=== PATIENT | female | born 1980 | race Caucasian/White ===

== ENCOUNTER 2023-10-24 13:40 | Emergency (ER) | payer OTHER, SELFPAY ==
[2023-10-24 13:45] VITALS: BP 116/78; PULSE 74; RESP 18; TEMP 35.8; O2SAT 100; BMI 29.5
--- NOTE | 2023-10-24 13:57 | ED.GENADULT ---
HPI - General Adult General Date Seen: 10/24/23 Chief complaint: Back Injury/Pain Stated complaint: lower back pain Time Seen by Provider: 10/24/23 13:57 History of Present Illness HPI narrative: This is a very pleasant 43-year-old female accompanied to the ER today by her daughter for evaluation of left flank and left low back pain. She has a history of occasional UTIs but is otherwise generally healthy. No history of kidney stones, diabetes, hypertension, or other long-term medical conditions. She has been very busy lately. She and her family are in the midst of selling her house and moving. Also her grandmother last night. She has not been no drinking as much fluids lately as she should be. She has been very active and moving . She noticed last night that she developed some urinary burning, indicative that she might be developing a UTI. She also does develop some dark colored urine but does not really know if it was bloody or just concentrated. No fevers. No nausea or vomiting. No diarrhea. No anterior abdominal pain Symptoms are ongoing today. Also this afternoon she developed rather severe pain involving her left low back, just above her left hip. It was stabbing in intense in nature in came and went in waves. When the pain was severe she was sweaty, nauseous, and in a lot of distress. Now that the pain is less severe she is no longer nauseous, no longer sweaty. No fevers this afternoon. No known back injury. The pain does not radiate down her legs. No chest pain or rib pain or trouble breathing. Related Data Home Medications Medication Instructions Recorded Confirmed dextroamphetamine-amphetamine 30 30 mg PO DAILY 10/24/23 10/24/23 mg tablet (Adderall) Previous Rx's Medication Instructions Recorded hydrocodone 5 mg-acetaminophen 325 1 tab PO Q6H PRN pain #10 tabs 10/24/23 mg tablet Allergies Allergy/AdvReac Type Severity Reaction Status Date / Time No Known Drug Allergies Allergy Verified 10/24/23 13:50 Exam Narrative: Exam Narrative: Constitutional: Appears well-developed and well-nourished. Alert. Conversant. Non toxic. Prefers to sit with her knees drawn up against her torso because it is a position of comfort for her. She is worried that she stretches or legs out her back might start to hurt again. HENT: Head: Atraumatic. Nose: Nose normal. Mouth/Throat: Oral mucosa is clear and moist. no trismus. Eyes: Conjunctivae normal. EOM normal. Pupils equal, round, and reactive to light. No scleral icterus. Neck: Normal range of motion. Neck supple. No tracheal deviation present. Cardiovascular: Normal rate, regular rhythm. No gallop. No friction rub. No murmur heard. Symmetric radial artery pulses Pulmonary/Chest: Effort normal. No stridor. No respiratory distress. No wheezes. No rales. No rhonchi . No tenderness. Abdominal: Soft. Bowel sounds normal. No distension. No mass. No tenderness. No rebound. No guarding. Left CVA tenderness. No rash. No bruising. Musculoskeletal: No midline thoracic or lumbar spine tenderness. SI joints and pelvis nontender. RUE: Normal range of motion. No tenderness. No deformity LUE: Normal range of motion. No tenderness. No deformity RLE: Normal range of motion. No edema. No tenderness. No deformity LLE: Normal range of motion. No edema. No tenderness. No deformity Lymph: No cervical adenopathy. Neurological: Alert and oriented to person, place, and time. Normal strength. CN II-VII intact. No sensory deficit. GCS eye subscore is 4. GCS verbal subscore is 5. GCS motor subscore is 6. Normal coordination Sensory: Normal light touch sensation bilaterally on the anteromedial thigh (L3), medial malleolus (L4), dorsal first web space (L5), lateral malleolus (S1). Strength: 5/5 strength hip flexors (L3) on the right and left 5/5 strength in the quadriceps (L4) on the right and left 5/5 strength in the tibialis anterior 5/5 strength in the EHL (L5) on the right and left 5/5 strength in the gastrocnemius (S1) on the right and left 5/5 strength in the hamstring on the right and left Negative straight leg raise bilaterally. Skin: Skin is warm and dry. No rash noted. No pallor. Normal capillary refill. Psychiatric: Normal mood. Normal affect. Polite. Const: Vital Signs, click to edit/add: Vital Signs - 24 hr 10/24/23 13:45 Temperature 96.4 F L Pulse Rate [Pulse Oximeter] 74 Respiratory Rate 18 Blood Pressure [Ri ght Upper Arm] 116/78 Pulse Oximetry 100 Oxygen Delivery Me thod Room Air Course Vital Signs Vital signs: Initial Vital Signs Temperature 96.4 F L 10/24/23 13:45 Temperature Source Temporal Artery Scan 10/24/23 13:45 Pulse Rate 74 10/24/23 13:45 Respiratory Rate 18 10/24/23 13:45 Blood Pressure 116/78 10/24/23 13:45 Blood Pressure Mean 90 10/24/23 13:45 Blood Pressure Position Supine 10/24/23 13:45 Pulse Oximetry 100 10/24/23 13:45 Oxygen Delivery Method Room Air 10/24/23 13:45 Vital Signs Temperature 96.4 F L 10/24/23 13:45 Pulse Rate 74 10/24/23 13:45 Respiratory Rate 18 10/24/23 13:45 Blood Pressure 116/78 10/24/23 13:45 Pulse Oximetry 100 10/24/23 13:45 Oxygen Delivery Method Room Air 10/24/23 13:45 Temperature 96.4 F L 10/24/23 13:45 Pulse Rate 74 10/24/23 13:45 Respiratory Rate 18 10/24/23 13:45 Blood Pressure 116/78 10/24/23 13:45 Pulse Oximetry 100 10/24/23 13:45 Oxygen Delivery Method Room Air 10/24/23 13:45 Medical Decision Making MDM Narrative Medical decision making narrative: Presented to the Emergency Department with urinary dysuria since last night as well as left flank pain that it began abruptly this afternoon abdominal pain. The differential diagnosis of abdominal pain includes: Left kidney stone, pyelonephritis, musculoskeletal low back pain. Without any anterior abdominal pain less likely would be diverticulitis, colitis, Pancreatitis, Enteritis/Colitis, amongst many other etiologies. Laboratory testing does not reveal a cause for the patient's pain. UA is negative for hematuria. Also negative for any pyuria or bacteria to suggest infection or pyelonephritis. Stone protocol CTImaging is noted to be normal. The exact etiology of the abdominal pain is not clear at this time. Your here however pain markedly improved while here in the ER. I wonder if she may have passed a small stone. No life threatening cause or need for emergent surgery or hospital admission is detected today. Differential would also include musculoskeletal back pain. She is not having any symptoms of lumbar radiculopathy or cauda quinine a or other indication for emergent MR imaging of her lumbar spine at this time. The patient was advised that if symptoms do not completely resolve within another 24 hours re-evaluation with primary care or return to the ED is indicated. The patient also understands that if they worsen, they should return to the ER right away. I discussed the uncertainty about the diagnosis and answered the patient's questions. return precautions discussed. Lab Data Labs: Lab Results 10/24/23 10/24/23 Range/Units 14:24 14:40 WBC 9.55 (4.50-11.00) K/uL RBC 4.83 (4.00-5.20) m/uL Hgb 14.8 (12.0-16.0) gm/dL Hct 43.7 (33.0-51.0) % MCV 91 (80-100) fL MCH 31 (26-34) pg MCHC 34 (32-36) gm/dL RDW Coeff of Trini 12.0 (11.5-15.5) % Plt Count 284 (140-440) K/uL Neut % (Auto) 76.2 H (42.0-72.0) % Lymph % (Auto) 15.9 L (20-44) % [place] % (Auto) 7.1 (0.0-11.0) % Eos % (Auto) 0.5 (0.0-7.0) % Baso % (Auto) 0.1 (0.0-3.0) % Neut # (Auto) 7.30 H (1.7-7.0) K/uL Lymph # (Auto) 1.50 (0.90-2.90) K/uL [place] # (Auto) 0.70 (0.00-0.90) K/UL Eos # (Auto) 0.05 (0.00-0.50) K/uL Baso # (Auto) 0.01 (0.00-0.30) K/uL Abs Immat Gran (auto) 0.02 (0.00-0.30) K/uL Imm/Tot Granulo (auto) 0.2 % Sodium 139 (135-149) mmol/L Potassium 4.6 (3.6-5.1) mmol/L Chloride 106 (96-114) mmol/L Carbon Dioxide 26 (20-32) mmol/L Anion Gap 7 (7-15) mEq/L BUN 14 (5-24) mg/dL Creatinine 0.7 (0.5-1.5) mg/dL Estimated Creat Clear 75.20 Estimated GFR 111 ml/min Glucose 106 (60-115) mg/dL Calcium 9.3 (8.4-10.6) mg/dL Lipase 199 (23-300) U/L Urine Color Yellow (Yellow) Urine Appearance Slightly Cloudy A (Clear) Urine pH 7.0 (5.0-8.5) Ur Specific [place] 1.015 (1.000-1.030) Urine Protein Negative (Negative) Urine Glucose (UA) Negative (Negative) Urine Ketones Negative (Negative) Urine Blood 1+ A (Negative) Urine Nitrite Negative (Negative) Urine Bilirubin Negative (Negative) Urine Urobilinogen 0.2 (0.2-1.0) Ur Leukocyte Esterase Negative (Negative) Urine RBC 0-2 (0-2) Urine WBC 0-2 (0-5) Ur Squamous Epith Cells None (None-Few) Urine Bacteria None (None) Urine HCG, Qual Negative (Negative) Imaging Data CT scan - abdomen: Attestation: I have reviewed the pertinent imaging results. Radiologist's impression: IMPRESSION: No discrete acute abdominal or pelvic process. No nephrolithiasis. Discharge Plan Discharge Clinical Impression: Acute left flank pain Patient Disposition: Home, Self-Care Condition: Stable Instructions: Flank Pain (ED) Additional Instructions: As we discussed, please return to the ER if you have worsening symptoms especially severe pain, or other concerning symptoms such as fever, vomiting, or front side abdominal pain. Use caution with prescription pain killers because that can cause drowsiness, sedation. Do not drive for 6 hours after taking pain killers. If you not completely improved within 48 hours, or if you get worse, please see your doctor or come back to the ER right away. Activity Level: No Restrictions Discharge Diet: Regular Prescriptions: New hydrocodone-acetaminophen 5-325 mg tablet 1 tab PO Q6H PRN (Reason: pain) Qty: 10 0RF No Action dextroamphetamine-amphetamine [Adderall] 30 mg tablet 30 mg PO DAILY Follow Up/Referrals: Provider,Not a Local [Primary Care Provider] - Stand Alone Forms: [facility] Info Instructions
--- NOTE | 2023-10-24 14:12 | CRLHL7_ITS ---
For Patients: As a result of the Century Cures Act, medical imaging exams and procedure reports are released immediately into your electronic medical record. You may view this report before your referring provider. If you have questions, please contact your health care provider. INDICATION: .LT FLANK PAIN TECHNIQUE: CT abdomen and pelvis without contrast. COMPARISON: None. FINDINGS: Lower chest: The visualized lower lungs are aerated. No pleural or pericardial effusion. ABDOMEN: Liver: Normal attenuation. Gallbladder and biliary: Cholelithiasis, otherwise normal gallbladder. Normal caliber bile ducts. Spleen: Normal size and attenuation. Pancreas: The noncontrast pancreas is homogeneous in attenuation without peripancreatic inflammatory changes or ductal dilatation. Adrenal glands: Normal adrenal glands. Kidneys and ureters: Normal attenuation. No radio-opaque calculi. No hydroureteronephrosis. GI tract: The stomach is relatively decompressed. Normal caliber small and large bowel loops. Normal appendix. Vascular structures: Normal caliber abdominal aorta. Lymph nodes: No lymphadenopathy in the abdomen or pelvis by size criteria. Peritoneum: No free air, free fluid, or focal drainable fluid collection. PELVIS: Genitourinary system: Normal urinary bladder. Age-appropriate uterus and ovaries. SKELETAL STRUCTURES AND SOFT TISSUES: No suspicious lytic or blastic lesions. IMPRESSION: No discrete acute abdominal or pelvic process. No nephrolithiasis. Please note that all CT scans at this facility use dose modulation, iterative reconstruction, and/or weight-based dosing when appropriate to reduce radiation dose to as low as reasonably achievable. Dictated by Tutu Chiu MD @ 10/24/2023 4:11:39 PM (Electronically Signed)
[2023-10-24 14:30] LABS: Basophils Absolute Auto 0.01 K/uL (0.00-0.30); Basophils Percent Auto 0.1 % (0.0-3.0); Eosinophils Absolute Auto 0.05 K/uL (0.00-0.50); Eosinophils Percent Auto 0.5 % (0.0-7.0); Hematocrit 43.7 % (33.0-51.0); Hemoglobin* 14.8 gm/dL (12.0-16.0); Immature Granulocytes Abs Auto 0.02 K/uL (0.00-0.30); Immature Granulocytes Pct Auto 0.2 %; Lymphocytes Percent Auto 15.9 % (20-44); Mean Corpuscular HGB Conc 34 gm/dL (32-36); Mean Corpuscular Hemoglobin 31 pg (26-34); Mean Corpuscular Volume 91 fL (80-100); Monocytes Percent Auto 7.1 % (0.0-11.0); Neutrophils Percent Auto 76.2 % (42.0-72.0); Platelet Count* 284 K/uL (140-440); Red Blood Count 4.83 m/uL (4.00-5.20); White Blood Count* 9.55 K/uL (4.50-11.00)
[2023-10-24 14:36] LABS: Slide Review Reflex No
[2023-10-24 14:43] LABS: Chloride* 106 mmol/L (96-114); Potassium* 4.6 mmol/L (3.6-5.1); Sodium* 139 mmol/L (135-149)
[2023-10-24 14:45] LABS: Creatinine* 0.7 mg/dL (0.5-1.5); Estimated Glomerular Filt Rate 111 ml/min
[2023-10-24 14:46] LABS: Anion Gap 7 mEq/L (7-15); Blood Urea Nitrogen* 14 mg/dL (5-24); Calcium* 9.3 mg/dL (8.4-10.6); Carbon Dioxide* 26 mmol/L (20-32); Glucose* 106 mg/dL (60-115); Lipase* 199 U/L (23-300)
[2023-10-24 14:53] LABS: Appearance Urine Slightly Cloudy (Clear); Bilirubin Urine Negative (Negative); Blood Urine 1+ (Negative); Color Urine Yellow (Yellow); Glucose Urine Negative (Negative); Ketones Urine Negative (Negative); Leukocyte Esterase Urine Negative (Negative); Nitrite Urine Negative (Negative); Protein Urine Negative (Negative); Specific Gravity Urine 1.015 (1.000-1.030); Ur HCG Qualitative* Negative (Negative); Urobilinogen Urine 0.2 (0.2-1.0)
[2023-10-24 15:02] LABS: RBC Urine 0-2 (0-2); WBC Urine 0-2 (0-5)
== END 2023-10-24 16:47 | disposition home or self-care (01) ==
PROVIDERS: Emergency Provider Emergency Medicine
DX: R10.9 Unspecified abdominal pain (principal)
CPT/HCPCS: 36415; 74176; 80048; 81001; 81025; 83690; 85025; 99283; 99284

== ENCOUNTER 2024-10-03 11:56 | Emergency (ER) | payer OTHER, SELFPAY ==
--- OUTSIDE RECORDS SUMMARY | 2024-10-03 11:58 | XMS_ITS | Continuity of Care Document ---
Author Name [facility] Organization [facility] Care Team Providers Care Mechanic Helper Name Role Phone [facility] Unavailable Unavailable Social History Combined list of available smoking, tobacco, and other social history from Department of Defense and Veterans Affairs facilities. Social History Type Response Date Comment Sourc e This section is an empty social history section. [facility]
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
[2024-10-03 12:14] VITALS: BP 116/78; PULSE 100; RESP 18; TEMP 36.9; O2SAT 97; BMI 29.3
[2024-10-03 12:36] VITALS: RESP 18; O2SAT 96
[2024-10-03 13:07] LABS: PCR FLU A Negative PCR FLU A (Negative); PCR FLU B Negative PCR FLU B (Negative); PCR RSV Negative PCR RSV (Negative); SARS PCR* Negative SARS-CoV-2 (Negative)
--- NOTE | 2024-10-03 13:18 | ED_ITS ---
HPI - General Adult General Chief complaint: Fever Stated complaint: flu like symptoms Time Seen by Provider: 10/03/24 12:08 History of Present Illness HPI narrative: This 44-year-old female comes in reporting upper respiratory symptoms including cough, nasal congestion, generalized body aches and pains, and some right ear pain. She states that these symptoms started yesterday. Her was diagnosed for a positive influenza a test 2 days ago. Related Data Home Medications ?Medication ?Instructions ?Recorded ?Confirmed lisdexamfetamine 30 mg capsule 30 mg PO QAM 10/03/24 10/03/24 Previous Rx's ?Medication ?Instructions ?Recorded acetaminophen 300 mg-codeine 30 mg 1 tab PO Q6H PRN pain #15 tabs 10/03/24 tablet oseltamivir 75 mg capsule (Tamiflu) 75 mg PO BID 5 days #10 caps 10/03/24 Allergies Allergy/AdvReac Type Severity Reaction Status Date / Time latex Allergy Mild skin Verified 10/03/24 12:21 irriatation and rashes shell fish Allergy Mild hives Uncoded 10/03/24 12:21 Review of Systems Status of ROS: Reports: 10 or more systems reviewed and unremarkable except as noted in History and below Narrative: Constitutional: No fevers, no weight gain or loss. Eyes: No discharge. No vision changes. HENT: Nasal congestion and right ear pain. Cardiovascular: No chest pain, no palpitations. Respiratory: No shortness of breath, no wheezes. Occasional cough. Gastrointestinal: No abdominal pain, no vomiting, no diarrhea. Genitourinary: No dysuria, no hematuria. Musculoskeletal: Normal range of motion. Skin: No rashes, no pruritis. Neurological: No dizziness, weakness, sensory change, speech change. Endo/Heme/Allergies: No bruising or bleeding. No polydipsia. Pysch: no suicidality, no anxiety, no insomnia. All other systems reviewed and are negative. [facility] Medical History (Updated 10/03/24 @ 13:22 by Joel Díaz MD) ADHD (attention deficit hyperactivity disorder) ?F90.9 - Attention-deficit hyperactivity disorder, unspecified type (ICD-10) Social History Smoking Status: Never smoker Do you use any of these nicotine containing products: None How often do you have a drink containing alcohol: never AUDIT-C Alcohol total score: 0 Non-prescribed substance use: denies use Exam Narrative: Exam Narrative: Constitutional: Well-developed, well-nourished, no acute distress. HEENT: Normocephalic, atraumatic. Tympanic membranes appear normal bilaterally. Neck: Normal range of motion. Nontender. Supple. Heart: Regular. No murmurs. Normal rate. Intact distal pulses. Lungs: Clear to auscultation. No chest discomfort. No wheezes, rhonchi, or rales. Abdomen: Normal bowel sounds. Nontender. No rebound tenderness. Genitalia: Deferred. Back: No midline tenderness. Normal range of motion. Extremities: Normal range of motion. No injury. Skin: Intact. No rash. Warm. No erythema or pallor. Neurologic: No altered sensation. No weakness. Alert and oriented. Psychiatric: No suicidality. No anxiety or depression. No insomnia. Nursing notes and vitals signs are reviewed. Const: Vital Signs, click to edit/add: Vital Signs - 24 hr 10/03/24 12:14 10/03/24 12:36 Temperature 98.4 F Pulse Rate [Pulse Oximeter] 100 Respiratory Rate 18 18 Blood Pressure [Ri t Upper Arm] 116/78 Pulse Oximetry 97 96 Oxygen Delivery Me thod Room Air Room Air Course Vital Signs Vital signs: Initial Vital Signs Temperature 98.4 F 10/03/24 12:14 Temperature Source Temporal Artery Scan 10/03/24 12:14 Pulse Rate 100 10/03/24 12:14 Respiratory Rate 18 10/03/24 12:14 Blood Pressure 116/78 10/03/24 12:14 Blood Pressure Mean 90 10/03/24 12:14 Blood Pressure Position Sitting 10/03/24 12:14 Pulse Oximetry 97 10/03/24 12:14 Oxygen Delivery Method Room Air 10/03/24 12:14 Vital Signs Temperature 98.4 F 10/03/24 12:14 Pulse Rate 100 10/03/24 12:14 Respiratory Rate 18 10/03/24 12:14 Blood Pressure 116/78 10/03/24 12:14 Pulse Oximetry 97 10/03/24 12:14 Oxygen Delivery Method Room Air 10/03/24 12:14 Temperature 98.4 F 10/03/24 12:14 Pulse Rate 100 10/03/24 12:14 Respiratory Rate 18 10/03/24 12:36 Blood Pressure 116/78 10/03/24 12:14 Pulse Oximetry 96 10/03/24 12:36 Oxygen Delivery Method Room Air 10/03/24 12:36 Medical Decision Making MDM Narrative Medical decision making narrative: This patient comes in with typical symptoms of influenza. A nasal swab is obtained and returns negative for COVID, influenza, and RSV. Her exam is also reassuring. The patient does have a who was recently diagnosed with influenza a. I did decide to prescribe Tamiflu despite the negative test today. She also received prescriptions for Toradol and Tylenol 3. The patient did also receive an oral dose of dexamethasone here today. Lab Data Labs: Lab Results 10/03/24 Range/Units 12:20 SARS-CoV-2 (PCR) Negative SARS-CoV-2 (Negative) Influenza Type A (PCR) Negative PCR FLU A (Negative) Influenza Type B (PCR) Negative PCR FLU B (Negative) RSV (PCR) Negative PCR RSV (Negative) Discharge Plan Discharge Clinical Impression: Acute upper respiratory infection Patient Disposition: Home, Self-Care Condition: Stable Additional Instructions: Take medication as needed and directed. Follow up with MD return if worsening. Prescriptions: New acetaminophen-codeine 300-30 mg tablet 1 tab PO Q6H PRN (Reason: pain) Qty: 15 0RF oseltamivir [Tamiflu] 75 mg capsule 75 mg PO BID 5 Days Qty: 10 0RF No Action lisdexamfetamine 30 mg capsule 30 mg PO QAM Follow Up/Referrals: Provider,Not a Local [Primary Care Provider] - Stand Alone Forms: [employer] Info Instructions
--- OUTSIDE RECORDS SUMMARY | 2024-10-03 13:36 | XMS_ITS | Continuity of Care Document ---
Author Name [facility] Organization [facility] Care Team Providers [facility] [employer] Service Representative Name Role Phone [facility] Unavailable Unavailable Social History Combined list of available smoking, tobacco, and other social history from [facility] and [facility] facilities. Social History Type Response Date Comment Sourc e This section is an empty social history section. [facility]
[2024-10-03] MEDS: dexAMETHasone 10 MG/ML inj PO (13:43)
== END 2024-10-03 13:53 | disposition home or self-care (01) ==
LOC: ED 13:33
PROVIDERS: Emergency Provider Emergency Medicine Emergency Medical Services
DX: J06.9 Acute upper respiratory infection, unspecified (principal)
CPT/HCPCS: 87631; 99282; 99283; 99284; J1100